=== PATIENT | male | born 1930 | race Caucasian/White ===

== ENCOUNTER 2021-09-24 06:54 | Day surgery (SDC) | payer OTHER ==
[~2021-09-24] VITALS: Ht 160 cm; Wt 60.3 kg
[2021-09-24] MEDS ORDERED: MEPERIDINE 100 MG INJ. 100 MG/ML VIAL ONE (07:10)
[2021-09-24] MEDS ORDERED: MIDAZOLAM HCL 5 MG/5 ML VIAL ONE (07:11)
[2021-09-24 12:26] VITALS: BP_SYST 124
== END 2021-09-24 10:10 | disposition home or self-care (01) ==
LOC: SDS 06:54 → SMU 06:57 → SDS 10:10
PROVIDERS: ATTEND Internal Medicine Gastroenterology
DX: D50.9 Iron deficiency anemia, unspecified (principal); K52.9 Noninfective gastroenteritis and colitis, unspecified; K29.70 Gastritis, unspecified, without bleeding; K64.8 Other hemorrhoids; Z79.899 Other long term (current) drug therapy; Z20.822 Contact with and (suspected) exposure to COVID-19
CPT/HCPCS: 36415 ×2; 43239; 43255; 45380; 82962; 87081; 87426; 87635; 88305; 88312; 88313; 99152; 99153; G0378; J2175; J2250; U0003